=== PATIENT | female | born 1960 | race Caucasian/White ===

== ENCOUNTER 2017-04-19 10:25 | Emergency (ER) | payer SELFPAY ==
[~2017-04-19] VITALS: Ht 172.7 cm; Wt 56.8 kg
[2017-04-19 10:33] VITALS: BP 116/56; TEMP 99.1
[2017-04-19] MEDS ORDERED: NEURONTIN100 MG/CAP PO (11:03)
[2017-04-19] MEDS ORDERED: ZOLOFT 100MG100 MG PO (11:03)
[2017-04-19] MEDS ORDERED: PHENERGAN 25 TA25 MG PO (11:04)
[2017-04-19] MEDS ORDERED: ATARAX50 MG PO (11:04)
[2017-04-19] MEDS ORDERED: KLONOPIN 1MG1 MG PO (11:05)
[2017-04-19] MEDS ORDERED: NORCO 325 MG-51 TAB PO (11:49)
[2017-04-19] MEDS ORDERED: VALIUM 2MG T2 MG/TAB PO (11:49)
[2017-04-19 12:54] VITALS: PULSE 77
== END 2017-04-19 12:56 | disposition home or self-care (01) ==
LOC: COL.ER 10:25
DX: S13.4XXA Sprain of ligaments of cervical spine, initial encounter (principal); G43.909 Migraine, unspecified, not intractable, without status migrainosus; F41.9 Anxiety disorder, unspecified; F43.10 Post-traumatic stress disorder, unspecified; M81.0 Age-related osteoporosis without current pathological fracture; F17.210 Nicotine dependence, cigarettes, uncomplicated; X50.1XXA Overexertion from prolonged static or awkward postures, initial encounter
CPT/HCPCS: J2550

== ENCOUNTER 2018-01-31 06:58 | Emergency (ER) | payer MEDICAID ==
[~2018-01-31] VITALS: Ht 172.7 cm; Wt 52.3 kg
[~2018-01-31 06:58] MED LIST: ATARAX50 MG PO; KLONOPIN 1MG1 MG PO; NEURONTIN100 MG/CAP PO; NORCO 325 MG-51 TAB PO; PHENERGAN 25 TA25 MG PO; VALIUM 2MG T2 MG/TAB PO; ZOLOFT 100MG100 MG PO
[2018-01-31 07:02] VITALS: TEMP 98.2
[2018-01-31] MEDS ORDERED: VENTOLIN0.09 MG IH (07:28)
[2018-01-31] MEDS ORDERED: RT ADVAIR 228 DISKUS IH (07:28)
[2018-01-31] MEDS ORDERED: RT SPIRIVA18 MCG IH (07:28)
[2018-01-31] MEDS ORDERED: NORCO 325 MG-51 TAB PO (08:06)
[2018-01-31] MEDS ORDERED: ZOFRAN 4MG T4 MG/TAB PO (08:06)
[2018-01-31 08:30] VITALS: BP 103/64; PULSE 67
== END 2018-01-31 09:03 | disposition home or self-care (01) ==
LOC: COL.ER 06:58
DX: S63.502A Unspecified sprain of left wrist, initial encounter (principal); S80.02XA Contusion of left knee, initial encounter; I10 Essential (primary) hypertension; M81.0 Age-related osteoporosis without current pathological fracture; W01.0XXA Fall on same level from slipping, tripping and stumbling without subsequent striking against object, initial encounter; Y92.009 Unspecified place in unspecified non-institutional (private) residence as the place of occurrence of the external cause

== ENCOUNTER → 2018-02-09 | Outpatient (CLI) | payer MEDICAID ==
[~2018-02-09] MED LIST changes: +RT ADVAIR 228 DISKUS IH; +RT SPIRIVA18 MCG IH; +VENTOLIN0.09 MG IH; +ZOFRAN 4MG T4 MG/TAB PO
== END ==
LOC: COL.RAD 13:25
DX: M51.34 Other intervertebral disc degeneration, thoracic region (principal); M99.71 Connective tissue and disc stenosis of intervertebral foramina of cervical region; G95.0 Syringomyelia and syringobulbia
CPT/HCPCS: A9585

== ENCOUNTER 2018-02-17 14:12 | Emergency (ER) | payer MEDICAID ==
[~2018-02-17] VITALS: Ht 170.2 cm; Wt 50.5 kg
[2018-02-17 14:31] VITALS: TEMP 98.5
[2018-02-17] MEDS ORDERED: ULTRAM 50MG TAB50 MG PO (15:58)
[2018-02-17 16:26] VITALS: BP 106/78; PULSE 90
== END 2018-02-17 16:26 | disposition home or self-care (01) ==
LOC: COL.ER 14:12
DX: R51 Headache (principal); J44.9 Chronic obstructive pulmonary disease, unspecified; F17.210 Nicotine dependence, cigarettes, uncomplicated; Z79.51 Long term (current) use of inhaled steroids
CPT/HCPCS: J1170; J2550

== ENCOUNTER 2021-11-05 01:54 | Emergency (ER) | payer MEDICAID ==
[~2021-11-05] VITALS: Ht 172.7 cm; Wt 60.0 kg
[~2021-11-05 01:54] MED LIST changes: +ULTRAM 50MG TAB50 MG PO
[2021-11-05 03:05] VITALS: BP 118/87; PULSE 78; TEMP 97.8
== END 2021-11-05 03:05 | disposition home or self-care (01) ==
LOC: COL.ER 01:54
DX: S80.01XA Contusion of right knee, initial encounter (principal); F17.210 Nicotine dependence, cigarettes, uncomplicated; W22.8XXA Striking against or struck by other objects, initial encounter